=== PATIENT | female | born 1990 | race Caucasian/White ===

== ENCOUNTER 2017-09-29 08:09 | Outpatient (CLI) | payer BC ==
--- NOTE | 2017-09-29 10:00 | ULT ---
ABDOMINAL ULTRASOUND COMPLETE: History: 27-year-old female with upper abdominal pain. FINDINGS: The gallbladder is demonstrated without evidence of gallstones, wall thickening, edema or pericholecy stic fluid. No ductal dilatation. Visualized liver, pancreas, IVC, aorta and spleen are unremarkable. No renal hydronephrosis. IMPRESSION: No evidence of gallstones. Somewhat heterogeneous liver echogenicity, nonspecific, evidence for nonsp ecific diffuse hepatic parenchymal process. No common duct dilatation. No other significant acute pro cess. POS: [facility]
== END 2017-09-29 08:10 | disposition home or self-care (01) ==
LOC: ULT 08:09
PROVIDERS: ATTEND Internal Medicine
DX: K59.00 Constipation, unspecified (principal); R10.13 Epigastric pain; R68.81 Early satiety; K76.89 Other specified diseases of liver
CPT/HCPCS: 76700